=== PATIENT | male | born 1965 ===

== ENCOUNTER 2018-09-11 09:10 | Inpatient (IN) | payer MEDICARE, MEDICAID ==
[~2018-09-11] VITALS: Ht 177.8 cm; Wt 102.2 kg
[2018-09-11] MEDS ORDERED: LACTATED RINGERS 1,000 ML IV SCH (10:07)
[2018-09-11] MEDS ORDERED: ACETAMINOPHEN 500 MG TABLET PO STA (10:08)
[2018-09-11] MEDS ORDERED: GABAPENTIN 300 MG CAPSULE PO STA (10:08)
[2018-09-11] MEDS ORDERED: OXYC30TA PO (10:16)
[2018-09-11] MEDS ORDERED: DIAZ5TAB PO (10:16)
[2018-09-11] MEDS ORDERED: MELO15TA24 PO (10:16)
[2018-09-11] MEDS ORDERED: FENT1PAT77 TD (10:16)
[2018-09-11] MEDS ORDERED: DULO30CA2 PO (10:16)
[2018-09-11] MEDS ORDERED: BACITRACIN 50,000 UNIT ONE (11:26)
[2018-09-11] MEDS ORDERED: BUPIVACAINE/EPI 0.5% 1:200K ONE (11:26)
[2018-09-11] MEDS ORDERED: methylPREDNISolone *ACETATE* 40 MG/ML ONE (11:26)
[2018-09-11] MEDS ORDERED: THROMBIN 5,000 UNIT VIAL TP ONE (11:26)
[2018-09-11] MEDS ORDERED: VANCOMYCIN 1,000 MG ONE (11:26)
[2018-09-11] MEDS ORDERED: SENNA/DOCUSATE TABLET PO PRN (11:30)
[2018-09-11] MEDS ORDERED: LABETALOL 5MG/ML, 20ML IVPush PRN (11:30)
[2018-09-11] MEDS ORDERED: MAGNESIUM HYDROXIDE 8%, 30ML UDC PO PRN (11:30)
[2018-09-11] MEDS ORDERED: PHARMACY MAY ADJ FOR RENAL FX MC PRN (11:30)
[2018-09-11] MEDS ORDERED: BISACODYL 10 MG SUPP PR PRN (11:30)
[2018-09-11] MEDS ORDERED: PROMETHAZINE 25 MG/ML, 1ML IM PRN ×3 (11:30→14:00)
[2018-09-11] MEDS ORDERED: morphine SULFATE 10 MG/ML, 1ML IVPush PRN (11:30)
[2018-09-11] MEDS ORDERED: FENTANYL PF 100 MCG/2ML IV ONE (12:00)
[2018-09-11] MEDS ORDERED: MIDAZOLAM 1 MG/ML, 2ML ONE (12:10)
[2018-09-11] MEDS ORDERED: FENTANYL PF 250 MCG/5ML ONE ×2 (12:10→14:01)
[2018-09-11] MEDS ORDERED: GLYCOPYRROLATE 0.2MG/1ML, 5ML ONE (12:14)
[2018-09-11] MEDS ORDERED: PROPOFOL 10 MG/ML, 20ML ONE (12:14)
[2018-09-11] MEDS ORDERED: NEOSTIGMINE 1 MG/ML, 10ML ONE (12:14)
[2018-09-11] MEDS ORDERED: CEFAZOLIN 1,000 MG ONE (12:14)
[2018-09-11] MEDS ORDERED: ROCURONIUM 10MG/ML,5ML ONE (12:14)
[2018-09-11 12:43] VITALS: BP 154/86
[2018-09-11 13:02] VITALS: BP 131/82
[2018-09-11] MEDS ORDERED: PROPOFOL 50 ML ONE ×4 (13:40→15:48)
[2018-09-11] MEDS ORDERED: OXYcodone 5 MG/5 ML ORAL.SOL UDC PO PRN (14:00)
[2018-09-11] MEDS ORDERED: HALOPERIDOL 5 MG/ML IV PRN (14:00)
[2018-09-11] MEDS: DULOXETINE 30 MG CAPSULE.DR PO SCH (14:00)
[2018-09-11] MEDS ORDERED: PROMETHAZINE 25 MG/ML, 1ML IV PRN (14:00)
[2018-09-11] MEDS ORDERED: MEPERIDINE/PF 25MG/0.5ML IVPush PRN (14:00)
[2018-09-11] MEDS ORDERED: ONDANSETRON 2MG/ML, 2ML IV PRN (14:00)
[2018-09-11] MEDS ORDERED: hydrALAzine 20 MG/ML, 1ML IV PRN (14:00)
[2018-09-11] MEDS ORDERED: LABETALOL 5MG/ML, 20ML IV PRN (14:00)
[2018-09-11] MEDS ORDERED: MORPHINE SULFATE 4 MG/ML, 1ML IVPush PRN (14:00)
[2018-09-11] MEDS ORDERED: PROMETHAZINE 12.5 MG SUPP PR PRN (14:00)
[2018-09-11] MEDS ORDERED: PROMETHAZINE 25 MG SUPP PR PRN (14:00)
[2018-09-11] MEDS ORDERED: DEXAMETHASONE 4 MG/ML, 1ML ONE ×2 (14:12)
[2018-09-11] MEDS ORDERED: ONDANSETRON 2MG/ML, 2ML ONE (14:12)
[2018-09-11] MEDS ORDERED: OXYcodone 5 MG/5 ML ORAL.SOL UDC ONE (17:09)
[2018-09-11] MEDS ORDERED: FENTANYL PF 100 MCG/2ML ONE (17:09)
[2018-09-11] MEDS ORDERED: MEPERIDINE/PF 25MG/ML,1ML ONE (17:09)
[2018-09-11] MEDS: FENTANYL PF 100 MCG/2ML IV PRN ×2 (17:21→17:40)
[2018-09-11] MEDS ORDERED: CYCLOBENZAPRINE 10 MG TABLET ONE (17:34)
[2018-09-11] MEDS: CYCLOBENZAPRINE 10 MG TABLET PO SCH ×2 (17:35→20:47)
[2018-09-11] MEDS ORDERED: FENTANYL 75 MCG PATCH TD SCH (19:00)
[2018-09-11] MEDS ORDERED: FENTANYL REMOVE PATCH NOTE XX SCH (19:00)
[2018-09-11] MEDS: NS + 20MEQ KCL 1,000 ML IV SCH (20:47)
[2018-09-11] MEDS: OXYcodone IR 30 MG TABLET PO PRN (21:03)
[2018-09-11 21:30] VITALS: BP 144/81
[2018-09-11] MEDS: CEFAZOLIN PMX 1GM/50ML 50 ML IVPB SCH (21:56)
[2018-09-11 22:59] VITALS: BP 145/87
[2018-09-12 01:28] VITALS: BP 108/64
[2018-09-12 04:25] VITALS: BP 109/63
[2018-09-12 06:03] LABS: BASOPHILS # (AUTO) 0.04 x10^3/uL (0-0.1); BASOPHILS % (AUTO) 0 % (0-1); EOSINOPHILS % (AUTO) 0 % (1-7); LYMPHOCYTES # (AUTO) 1.27 x10^3/uL (1-3.4); LYMPHOCYTES % (AUTO) 10 % (22-44); MD NO; MEAN CORPUSCULAR HEMOGLOBIN 26.9 pg (27.5-34.5); MEAN CORPUSCULAR HGB CONC 33.4 g/dL (33.2-36.2); MEAN CORPUSCULAR VOLUME 80.7 fL (81-97); MEAN PLATELET VOLUME 7.8 fL (7.4-10.4); MONOCYTES # (AUTO) 0.48 x10^3/uL (0.2-0.8); MONOCYTES % (AUTO) 4 % (2-9); NEUTROPHILS # (AUTO) 10.49 x10^3/uL (1.8-6.8); NEUTROPHILS % (AUTO) 85 % (42-75); PLATELET COUNT 322 x10^3/uL (130-400); RED BLOOD COUNT 5.14 x10^6/uL (4.38-5.82); RED CELL DISTRIBUTION WIDTH 13.7 % (9.4-14.8)
[2018-09-12] MEDS: CEFAZOLIN PMX 1GM/50ML 50 ML IVPB SCH (06:03)
[2018-09-12] MEDS: OXYcodone IR 30 MG TABLET PO PRN ×4 (06:09→21:53)
[2018-09-12] MEDS: NS + 20MEQ KCL 1,000 ML IV SCH ×2 (06:10→17:09)
[2018-09-12 06:21] LABS: ANION GAP 8 mmol/L (5-15); CALCIUM 8.6 mg/dL (8.5-10.1); CHLORIDE 109 mmol/L (98-107)
[2018-09-12 06:23] LABS: CREATININE 0.75 mg/dL (0.7-1.3)
[2018-09-12 07:05] VITALS: BP 119/74
[2018-09-12] MEDS: CYCLOBENZAPRINE 10 MG TABLET PO SCH ×3 (08:32→21:53)
[2018-09-12] MEDS: DULOXETINE 30 MG CAPSULE.DR PO SCH (08:32)
[2018-09-12 13:26] VITALS: BP 136/84
[2018-09-12 20:28] VITALS: BP 124/83
[2018-09-13] MEDS: ONDANSETRON 2MG/ML, 2ML IVPush PRN ×3 (02:40→17:31)
[2018-09-13] MEDS: NS + 20MEQ KCL 1,000 ML IV SCH ×3 (02:40→23:00)
[2018-09-13 02:47] VITALS: BP 145/77
[2018-09-13 06:05] LABS: MEAN CORPUSCULAR HEMOGLOBIN 26.4 pg (27.5-34.5); MEAN CORPUSCULAR HGB CONC 33.3 g/dL (33.2-36.2); MEAN CORPUSCULAR VOLUME 79.1 fL (81-97); MEAN PLATELET VOLUME 7.7 fL (7.4-10.4); PLATELET COUNT 273 x10^3/uL (130-400); RED BLOOD COUNT 5.25 x10^6/uL (4.38-5.82); RED CELL DISTRIBUTION WIDTH 13.6 % (9.4-14.8)
[2018-09-13 06:06] LABS: ANION GAP 4 mmol/L (5-15); CALCIUM 8.2 mg/dL (8.5-10.1); CHLORIDE 103 mmol/L (98-107); CREATININE 0.77 mg/dL (0.7-1.3)
[2018-09-13 06:27] LABS: BASOPHILS # (AUTO) 0.19 x10^3/uL (0-0.1); BASOPHILS % (AUTO) 1 % (0-1); EOSINOPHILS # (AUTO) 0.14 x10^3/uL (0-0.4); EOSINOPHILS % (AUTO) 1 % (1-7); LYMPHOCYTES # (AUTO) 2.04 x10^3/uL (1-3.4); LYMPHOCYTES % (AUTO) 12 % (22-44); MD SCAN; MONOCYTES # (AUTO) 0.75 x10^3/uL (0.2-0.8); MONOCYTES % (AUTO) 4 % (2-9); NEUTROPHILS # (AUTO) 13.72 x10^3/uL (1.8-6.8); NEUTROPHILS % (AUTO) 81 % (42-75)
[2018-09-13] MEDS: CYCLOBENZAPRINE 10 MG TABLET PO SCH ×3 (08:04→20:52)
[2018-09-13] MEDS: OXYcodone IR 30 MG TABLET PO PRN ×3 (08:04→20:53)
[2018-09-13] MEDS: DULOXETINE 30 MG CAPSULE.DR PO SCH (08:04)
[2018-09-13 08:11] VITALS: BP 140/90
[2018-09-13 14:14] VITALS: BP 149/89
[2018-09-13] MEDS: ACETAMINOPHEN 500 MG TABLET PO PRN ×2 (14:25→20:52)
[2018-09-13] MEDS ORDERED: PROMETHAZINE 25 MG/ML, 1ML IM PRN (18:30)
[2018-09-13] MEDS ORDERED: PROMETHAZINE 25 MG SUPP PR PRN (18:30)
[2018-09-13 19:47] VITALS: BP 138/92
[2018-09-14 00:52] VITALS: BP 119/75
[2018-09-14] MEDS: OXYcodone IR 30 MG TABLET PO PRN ×3 (03:54→13:30)
[2018-09-14] MEDS: ACETAMINOPHEN 500 MG TABLET PO PRN (03:54)
[2018-09-14] MEDS: ONDANSETRON 2MG/ML, 2ML IVPush PRN (03:54)
[2018-09-14 05:59] LABS: BASOPHILS # (AUTO) 0.06 x10^3/uL (0-0.1); BASOPHILS % (AUTO) 1 % (0-1); EOSINOPHILS # (AUTO) 0.12 x10^3/uL (0-0.4); EOSINOPHILS % (AUTO) 1 % (1-7); LYMPHOCYTES # (AUTO) 1.56 x10^3/uL (1-3.4); LYMPHOCYTES % (AUTO) 14 % (22-44); MD NO; MEAN CORPUSCULAR HEMOGLOBIN 26.3 pg (27.5-34.5); MEAN CORPUSCULAR HGB CONC 32.8 g/dL (33.2-36.2); MEAN CORPUSCULAR VOLUME 80.1 fL (81-97); MEAN PLATELET VOLUME 7.5 fL (7.4-10.4); MONOCYTES # (AUTO) 0.56 x10^3/uL (0.2-0.8); MONOCYTES % (AUTO) 5 % (2-9); NEUTROPHILS # (AUTO) 9.24 x10^3/uL (1.8-6.8); NEUTROPHILS % (AUTO) 80 % (42-75); PLATELET COUNT 278 x10^3/uL (130-400); RED BLOOD COUNT 5.25 x10^6/uL (4.38-5.82); RED CELL DISTRIBUTION WIDTH 13.5 % (9.4-14.8)
[2018-09-14 08:15] VITALS: BP 137/81
[2018-09-14] MEDS: CYCLOBENZAPRINE 10 MG TABLET PO SCH (09:18)
[2018-09-14] MEDS: DULOXETINE 30 MG CAPSULE.DR PO SCH (09:19)
[2018-09-14] MEDS ORDERED: MAGNESIUM CITRATE 300ML ORAL SOL PO ONE (09:30)
[2018-09-14] MEDS: NS + 20MEQ KCL 1,000 ML IV SCH (09:35)
[2018-09-14 13:29] VITALS: BP 117/82
== END 2018-09-14 14:15 | disposition home or self-care (01) | DRG 460 ==
LOC: INTOOBSV 09:10 → ORIP 09:10 → OBSVTOIN 09:10 → 4NOR 18:15 → DCLOUNGE 09-14 14:02
PROVIDERS: ADMIT Neurological Surgery; ATTEND Neurological Surgery
PROC: 0SG3071 Fusion of Lumbosacral Joint with Autologous Tissue Substitute, Posterior Approach, Posterior Column, Open Approach (ICD-10-PCS; 2018-09-11)
PROC: 01NR0ZZ Release Sacral Nerve, Open Approach (ICD-10-PCS; 2018-09-11)
PROC: 00NY0ZZ Release Lumbar Spinal Cord, Open Approach (ICD-10-PCS; 2018-09-11)
PROC: 4A11X4G Monitoring of Peripheral Nervous Electrical Activity, Intraoperative, External Approach (ICD-10-PCS; 2018-09-11)
PROC: 01NB0ZZ Release Lumbar Nerve, Open Approach (ICD-10-PCS; principal; 2018-09-11 12:30)
DX: M47.27 Other spondylosis with radiculopathy, lumbosacral region (principal); I10 Essential (primary) hypertension; E78.00 Pure hypercholesterolemia, unspecified; F43.10 Post-traumatic stress disorder, unspecified; F41.9 Anxiety disorder, unspecified; F32.9 Major depressive disorder, single episode, unspecified; G47.30 Sleep apnea, unspecified; G89.29 Other chronic pain; M19.90 Unspecified osteoarthritis, unspecified site; G62.9 Polyneuropathy, unspecified; Z88.8 Allergy status to other drugs, medicaments and biological substances; Z82.61 Family history of arthritis; Z83.3 Family history of diabetes mellitus
CPT/HCPCS: 36415; 72100; 80048; 85025; 86850; 86900; 93005; 95938; 95941; C1713; G0378; J0690; J1100; J2175; J2250; J2405; J2550; J2704; J2710; J3010; J3370; J3480; C1762; J1030; J7120